=== PATIENT | male | born 1990 | race African-American/Black ===

== ENCOUNTER 2016-10-16 00:56 | Emergency (ER) | payer BC ==
--- NOTE | ~2016-10-16 | CR282 ---
[facility] A Service of [facility] & [facility] RADIOLOGY TEXT RESULTS PATIENT: RAH PLEITEZ LOCATION: [facility] : [birth year] UNIT #: [id number] AGE: [address]: Enid Chang MD SEX: M ORDER DR: [id number] [address] [id number] [id number] MR#: [id number] Acc #: [id number] NAME: RAH PLEITEZ : 1990 SEX: M STUDY DATE/TIME: 10/16/2016 1:24 UNIT: [facility] ROOM: STUDY DESCRIPTION: CR Wrist Min 3 View Rt Attending Physician: Enid Chang M.D. Ordering Physician: Enid Chang M.D. Primary Care Physician: Primary Care Physician No MEDICAL IMAGING REPORT This report is preliminary unless electronic signature is present EXAM Right wrist series INDICATION Right wrist pain after an injury 3 days ago. PROCEDURE Three views of the right wrist. COMPARISON None. FINDINGS No fracture or dislocation. IMPRESSION No acute findings. Dictated by... Austin Franks M.D. THIS IS AN ELECTRONICALLY VERIFIED REPORT Austin Franks M.D. at 10/21/2016 2:59 PM ARIADNE/jonathan TD: 10/16/2016 13:05 JOB #: [id number] MEDICAL IMAGING REPORT Page 1 of 1 COPY
[~2016-10-16 00:56] MED LIST: MIGRAINE PILL; OXYCODONE HCL5 M1 PO; PHENERGAN25 MG PO; SILVADENE TOP; ULTRAM PO
== END 2016-10-16 02:12 | disposition home or self-care (01) ==
LOC: CED 00:56
DX: S63.501A Unspecified sprain of right wrist, initial encounter (principal); R51 Headache; Z88.0 Allergy status to penicillin; X58.XXXA Exposure to other specified factors, initial encounter; Y93.89 Activity, other specified; Y92.69 Other specified industrial and construction area as the place of occurrence of the external cause
CPT/HCPCS: 29260; 73110; 99283